=== PATIENT | female | born 1995 | race Caucasian/White ===

== ENCOUNTER → 2020-06-12 10:11 | Outpatient (CLI) | payer BC, SELFPAY ==
[2015-08-15 20:06] VITALS: BMI 34.7
[2020-06-16 16:06] LABS: HPV Reflexed? NOT INDICATED
== END ==
PROVIDERS: Visit Provider Obstetrics & Gynecology
DX: Z12.4 Encounter for screening for malignant neoplasm of cervix (principal); Z11.3 Encounter for screening for infections with a predominantly sexual mode of transmission
CPT/HCPCS: 88175; G0145

== ENCOUNTER → 2020-11-13 09:31 | Outpatient (CLI) | payer BC, SELFPAY ==
[2020-11-13 09:52] LABS: Absolute Lymphocyte Count 2.32 X10^3/uL (0.83-4.51); Absolute Neutrophil Count 5.3 X10^3/uL (2.0-7.7); Basophil# 0.02 X10^3/uL; Basophil% 0.2 % (0-1); Eosinophil# 0.16 X10^3/uL; Eosinophils% 1.9 % (0-5); Hematocrit 41.1 % (37-47); Hemoglobin 14.3 g/dL (12.0-15.0); Lymphocyte # 2.32 X10^3/ul (4.0); Lymphocyte % 27.4 % (19-41); Mean Corp Hgb Conc 34.8 g/dL (32-36); Mean Corpuscular Volume 86.3 fL (81-99); Mean Platelet Vol. 11.2 fl (6.2-12.0); Monocyte# 0.66 X10^3/uL; Monocyte% 7.8 % (0-10); NRBC Flagged by Analyzer 0 % (0-5); Neutrophil # 5.29 X10^3/uL (2.7-7.7); Neutrophil % 62.5 % (47-70); Platelet Count 183 K/mm3 (150-450); RBC Distribution Width CV 12.5 % (11.6-14.6); RBC Distribution Width SD 39.8 fl (35.1-43.9); Red Blood Count 4.76 M/mm3 (4.2-5.4); White Blood Count 8.5 K/mm3 (4.4-11.0)
[2020-11-13 11:24] LABS: HIV - WCH Non-Reactive (Nonreactive); Hepatitis B Surface Antigen Non-Reactive (Nonreactive); Hepatitis C Antibody Non-Reactive (Nonreactive); Rubella IgG Reactive (Nonreactive)
[2020-11-15 03:07] LABS: Chlamydia By Nucleic Acid AMP Negative (Negative)
[2020-11-15 11:48] LABS: Gonococcus By Nucleic Acid AMP Negative (Negative)
[2020-11-20 01:10] LABS: Prenatal RPR NONREACTIVE (NONREACTIVE)
== END ==
PROVIDERS: Visit Provider Obstetrics & Gynecology
DX: Z34.81 Encounter for supervision of other normal pregnancy, first trimester (principal)
CPT/HCPCS: 36415; 85025; 86703; 86762; 86803; 87077; 87086; 87088; 87340; 87491; 87591

== ENCOUNTER → 2021-04-14 10:19 | Outpatient (CLI) | payer BC, MEDICAID, SELFPAY ==
[2021-04-14 12:02] LABS: Hematocrit 36.2 % (37-47); Hemoglobin 12.2 g/dL (12.0-15.0); Mean Corp Hgb Conc 33.7 g/dL (32-36); Mean Corpuscular Hgb 29.8 pg (27.0-32.0); Mean Corpuscular Volume 88.5 fL (81-99); Mean Platelet Vol. 11.9 fl (6.2-12.0); Platelet Count 174 K/mm3 (150-450); RBC Distribution Width CV 12.9 % (11.6-14.6); RBC Distribution Width SD 41.7 fl (35.1-43.9); Red Blood Count 4.09 M/mm3 (4.2-5.4); White Blood Count 13.5 K/mm3 (4.4-11.0)
[2021-04-14 12:07] LABS: Glucose Challenge Gest 1H 50g 120 mg/dL (70-140)
== END ==
PROVIDERS: Visit Provider Obstetrics & Gynecology
DX: Z34.83 Encounter for supervision of other normal pregnancy, third trimester (principal)
CPT/HCPCS: 36415; 82950; 85027

== ENCOUNTER → 2021-05-28 17:33 | Outpatient (CLI) | payer BC, MEDICAID, SELFPAY | PROVIDERS: Visit Provider Obstetrics & Gynecology | DX: R30.0 Dysuria (principal) | CPT/HCPCS: 87086; 87088 ==

== ENCOUNTER → 2021-06-10 16:31 | Outpatient (CLI) | payer BC, MEDICAID, SELFPAY ==
[2021-06-10 17:25] LABS: Hematocrit 36.5 % (37-47); Hemoglobin 12.5 g/dL (12.0-15.0); Mean Corp Hgb Conc 34.2 g/dL (32-36); Mean Corpuscular Hgb 29.6 pg (27.0-32.0); Mean Corpuscular Volume 86.5 fL (81-99); Mean Platelet Vol. 11.7 fl (6.2-12.0); Platelet Count 170 K/mm3 (150-450); RBC Distribution Width CV 13.2 % (11.6-14.6); RBC Distribution Width SD 41.3 fl (35.1-43.9); Red Blood Count 4.22 M/mm3 (4.2-5.4); White Blood Count 13.6 K/mm3 (4.4-11.0)
[2021-06-10 17:38] LABS: Prothrombin Time (Protime)PT. 12.4 SECONDS (11.7-14.9)
[2021-06-10 17:39] LABS: Partial Thromboplast Time 29.7 Seconds (24.1-36.2)
[2021-06-10 17:50] LABS: AST(SGOT) 15 U/L (15-37); Alanine Aminotransfer ALT/SGPT 19 U/L (13-56); Creatinine, Serum 0.42 mg/dL (0.55-1.02); EST Glomerular Filtration Rate 196 mL/min (>60); Est Glom Filt Rate - Afr Amer 237 mL/min (>60)
== END ==
PROVIDERS: Visit Provider Obstetrics & Gynecology
DX: Z34.83 Encounter for supervision of other normal pregnancy, third trimester (principal)
CPT/HCPCS: 36415; 82565; 84450; 84460; 84550; 85027; 85610; 85730

== ENCOUNTER → 2021-06-19 10:10 | Outpatient (CLI) | payer MEDICAID, BC, SELFPAY | PROVIDERS: Visit Provider Obstetrics & Gynecology | DX: Z36.85 Encounter for antenatal screening for Streptococcus B (principal) | CPT/HCPCS: 87077; 87081; 87186 ==

== ENCOUNTER 2021-06-26 19:56 | Outpatient (CLI) | payer MEDICAID, BC, SELFPAY ==
[2021-06-26 20:08] VITALS: PULSE 113; O2SAT 97
[2021-06-26 20:11] VITALS: TEMP 36.3
[2021-06-26 20:12] VITALS: BP 124/67; PULSE 101
[2021-06-26 20:16] VITALS: BMI 37.1
[2021-06-26 20:31] LABS: Color, Urine Yellow (Yellow); Glucose, Dipstick Normal (Normal); Ketone-Dipstick Negative (Negative); Leukocyte Esterase-Dipstick 100 /ul (Negative); Nitrite-Dipstick Negative (Negative); Occult Blood-Urine Negative /ul (Negative); Protein-Dipstick 15 mg/dl (Negative); Specific Gravity, Urine 1.015 (1.002-1.030); Urine Bilirubin Dipstick Negative (Negative); Urine Clarity Sl. Cloudy (Clear); Urine Urobilinogen 1 mg/dl (Normal); Urine pH 6.5 (5.0 - 8.0)
--- NOTE | 2021-06-27 09:49 | OB.TRI.NOTE ---
HPI - General HPI Narrative SARAH SINGH, is a 25 F who presents to labor and delivery because of foul-smelling urine. She denies any contractions, bleeding, or decreased movement. PFSH PFSH Home Medications vit,[id number] [Prenatabs FA] 1 tab PO DAILY 08/15/15 [History Last Taken 06/26/21] Allergy/AdvReac Type Severity Reaction Status Date / Time morphine Allergy Hives Verified 08/15/15 20:08 prednisone Allergy Nausea/Vom/ Verified 06/26/21 20:17 Diarrhea Social History Smoking Status: Current every day smoker History Elective abortions Hx Para 0 Spontaneous abortions Hx # Term Pregnancies Ectopic pregnancies Hx # Pregnancies Multiple births # of living children NST FHR Rate Baby A NST Reactive:: Yes FHR Category:: Category I Assessment & Plan (1) Urine discoloration: PLAN: 38+ week intrauterine with urine discoloration. Urine analysis was negative. Will send urine for culture and sensitivity. Reactive nonstress test. Will discharge to home with routine follow-up
== END 2021-06-26 20:10 | disposition home or self-care (01) ==
LOC: WPOUT 20:01 → WP 20:02
PROVIDERS: Referring Provider Obstetrics & Gynecology; Visit Provider Obstetrics & Gynecology
DX: O26.893 Other specified pregnancy related conditions, third trimester (principal); R39.89 Other symptoms and signs involving the genitourinary system; Z3A.38 38 weeks gestation of pregnancy
CPT/HCPCS: 59025; 59050; 81002; 99218; G0378

== ENCOUNTER 2021-07-02 06:51 | Inpatient (IN) | payer BC, MEDICAID, SELFPAY ==
[2021-07-02] VITALS (43 sets, daily range): BP systolic 124–155; BP diastolic 65–88; PULSE 72–213; RESP 16; TEMP 36.2–37; O2SAT 82–100; BMI 35.3
[2021-07-02 07:58] LABS: Absolute Lymphocyte Count 2.17 X10^3/uL (0.83-4.51); Absolute Neutrophil Count 8.9 X10^3/uL (2.0-7.7); Basophil# 0.03 X10^3/uL; Basophil% 0.2 % (0-1); Eosinophil# 0.29 X10^3/uL; Eosinophils% 2.3 % (0-5); Hematocrit 38.7 % (37-47); Lymphocyte # 2.17 X10^3/ul (0.83-4.51); Lymphocyte % 17.3 % (19-41); Mean Corp Hgb Conc 33.6 g/dL (32-36); Mean Corpuscular Hgb 29.7 pg (27.0-32.0); Mean Corpuscular Volume 88.4 fL (81-99); Mean Platelet Vol. 11.9 fl (6.2-12.0); Monocyte# 1.02 X10^3/uL; Monocyte% 8.1 % (0-10); NRBC Flagged by Analyzer 0 % (0-5); Neutrophil # 8.93 X10^3/uL (2.7-7.7); Neutrophil % 71.5 % (47-70); Platelet Count 151 K/mm3 (150-450); RBC Distribution Width CV 13.2 % (11.6-14.6); RBC Distribution Width SD 42.6 fl (35.1-43.9); Red Blood Count 4.38 M/mm3 (4.2-5.4); White Blood Count 12.5 K/mm3 (4.4-11.0)
[2021-07-02] MEDS: Lactated Ringers 1,000 ML 50 ML IV (08:21)
--- NOTE | 2021-07-02 08:26 | PCM.HP.BLA ---
History and Physical Date of Admission: 07/02/21 Chief complaint: Induction of labor at term History of present illness: 26-year-old at 39 weeks and 3 days with TERRI: 07/06/2021 by LMP arrives for induction of labor at term. Denies headache, visual changes, chest pain, shortness of breath, nausea vomiting, right upper quadrant pain. Patient states good movement. Obstetric history: G1: 38-week female 08/16/2015 G2: 37-week female 06/16/2019 complicated by gestational hypertension G3: SAB G4: Current Past medical history: None Medications: Aspirin, vitamin Past surgical history: Appendectomy, tonsils and adenoids Allergies: Morphine, prednisone Social history: Former smoker on patch, denies alcohol or drug use Family history: Denies to history DVT or PE Review of systems: Besides the above pertinent positives a full review of systems was performed and found to be negative Physical exam: Vital signs: Blood pressure 124/67 pulse 101 temp 97.5 Fahrenheit General: Normal-appearing no acute distress HEENT: Normocephalic atraumatic no cervical of adenopathy Cardiac/respiratory: No use of accessory muscles, nonlabored breathing Abdomen: Soft, nontender, gravid Extremities: No peripheral edema normal peripheral pulses Psych: Normal affect normal demeanor nonpressured speech Labs: White blood cell count 12.5, hemoglobin 13.0 hematocrit 38.7%, platelets 151. Blood type B+ antibody negative Assessment plan: 26-year-old at 39 weeks and 3 days for induction of labor at term Admit labor and delivery CEFM GBS positive: For penicillin Induction via Pitocin Routine orders Anesthesia to see
[2021-07-02] MEDS: Oxytocin 30 units/NS 500 ml 30 UNITS/500 ML IV.SOLN IV (09:00)
[2021-07-02] MEDS: Lactated Ringers 500 ML 999 ML IV (10:37)
[2021-07-02] MEDS: fentaNYL-bupivacaine (epidural) 100 ML BAG EPIDURAL (11:22)
[2021-07-02] MEDS: Penicillin G 3,000,000 Units 50 ML 100 UNITS IV (12:32)
--- NOTE | 2021-07-02 13:16 | PN.OBGYN_ITS ---
Subjective Subjective Patient now comfortable with epidural Objective Data Objective Data Vital Signs: Vital Signs Temp Pulse BP Pulse Ox 97.7 F L 83 133/70 H 98 07/02/21 13:02 07/02/21 13:03 07/02/21 13:03 07/02/21 12:08 Weight: 218 lb 11.177 oz Body Mass Index (BMI) 35.3 Intake & Output: Intake and Output for Last 24 Hours 06/30/21 07/01/21 07/02/21 23:59 23:59 23:59 Intake Total 970.81 / 970.81 Output Total 350 / 350 Balance 620.81 / 620.81 Lab / Micro Data Result Diagrams: 07/02/21 07:40 Labs: Laboratory Results - last 24 hr 07/02/21 07:40: WBC 12.5 H, RBC 4.38, Hgb 13.0, Hct 38.7, MCV 88.4, MCH 29.7, MCHC 33.6, RDW Std Deviation 42.6, RDW Coeff of Holli 13.2, Plt Count 151, MPV 11.9, Immature Gran % (Auto) 0.600, Neut % (Auto) 71.5 H, Lymph % (Auto) 17.3 L, Tama % (Auto) 8.1, Eos % (Auto) 2.3, Baso % (Auto) 0.2, Absolute Neuts (auto) 8.9 H, Absolute Lymphs (auto) 2.17, Nucleated RBC % 0 07/02/21 07:40: Blood Type B POSITIVE, Antibody Screen NEGATIVE Micro: Microbiology 07/02/21 07:30 Nasal Secretion SARS-CoV-2 Antigen (Rapid) - Final Physical Exam Const alert, oriented x3, no apparent distress, average body habitus, healthy a ppearing and well nourished HEENT normocephalic and moist oral mucous membranes Head and Scalp: atraumatic Face and Sinus: normal facial exam Neck full ROM Resp normal respiratory effort, no retractions and no use of accessory muscles Narrative: Cervical exam /-3. AROM clear fluid Extremity normal to inspection, full ROM and no clubbing, cyanosis or edema Psych mental status grossly normal, affect normal, speech normal and activity/motor b ehavior normal Assessment & Plan (1) : PLAN: Patient seen and examined. Now comfortable with epidural. AROM for clear fluid. Continue current management
[2021-07-02] MEDS: Mag Hydrox/Al Hydrox/Simeth 30 ML UDC PO (13:37)
[2021-07-02] MEDS: Oxytocin 30 units/NS 500 ml 30 UNITS/500 ML IV.SOLN 334 UNITS IV (15:00)
--- NOTE | 2021-07-02 15:08 | EX.PCM.OBRPT ---
Vaginal Delivery Findings Description of Procedure: Normal spontaneous vaginal delivery of a viable male , vertex GRAHAM. Head and shoulders delivered with ease. Cord cut and clamped. Baby handed off to patient. Placenta delivered via cord traction and fundal massage. First-degree midline perineal laceration noted and repaired in typical fashion. EBL 300 cc Apgars 9/9
[2021-07-02] MEDS: 0.9% Saline Lock 10 ML Syringe IV (17:40)
[2021-07-03] VITALS (7 sets, daily range): BP systolic 122–155; BP diastolic 67–77; PULSE 74–80; RESP 16–18; TEMP 36.1–36.8; O2SAT 97–98
--- NOTE | 2021-07-03 08:28 | PCM.DC ---
Discharge Instructions Diet Discharge Diet: No restrictions Activity Discharge Activity: Return to Normal Activity, May Drive and May Shower May resume sexual activity in: 4-6 weeks Weight Bearing Status: Weight bearing as tolerated Dressing / Incision Call your doctor if your incision/area has: Continuous Slow Oozing and Foul Smelling Discharge Call your doctor if you observe: Fever of 101 or Higher, Shortness of breath and Chest pain Follow Up Care Please Follow Up With: Zaki Quinn MD When: 2 week telehealth, 4-6 weeks Test Results: Test results from this visit will be discussed in further detail at your follow-up appointment, if applicable. Discharge Plan Admission Admit Date/Time: 07/02/21 06:51 Attending Provider: Zaki Quinn Primary Care Provider: Care Physician,Meenu Primary Discharge Orders/Prescriptions Prescriptions: No Action Prenatabs FA 1 TABLET tablet 2 tab PO DAILY RF: 0 Disposition Discharge Orders: Discharge Patient (Routine); Ordered 07/03/21 Ordered By: Dr. Zaki Quinn
--- NOTE | 2021-07-03 08:30 | PCM.PN.OB ---
Subjective Subjective no over night complaints. Pain well controlled Objective Data Objective Data Vital Signs: Vital Signs Temp Pulse Resp BP Pulse Ox 98.2 F 75 16 155/67 H 99 07/03/21 03:34 07/03/21 03:34 07/03/21 03:34 07/03/21 03:34 07/02/21 17:29 Oxygen Delivery Method Room Air Weight: 218 lb 11.177 oz Body Mass Index (BMI) 35.3 Intake & Output: Intake and Output for Last 24 Hours 07/01/21 07/02/21 07/03/21 23:59 23:59 23:59 Intake Total 1939.64 / 1939.64 Output Total 350 / 350 Balance 1589.64 / 1589.64 Lab / Micro Data Result Diagrams: 07/02/21 07:40 Labs: Laboratory Results - last 24 hr 07/02/21 07:40: Blood Type B POSITIVE, Antibody Screen NEGATIVE Micro: Microbiology 07/02/21 07:30 Nasal Secretion SARS-CoV-2 Antigen (Rapid) - Final Physical Exam Const alert, oriented x3, no apparent distress, average body habitus, healthy appearing and well nourished HEENT normocephalic and moist oral mucous membranes Head and Scalp: atraumatic Face and Sinus: normal facial exam Eyes PERRL Neck full ROM Resp normal respiratory effort, no retractions and no use of accessory muscles Extremity normal to inspection, full ROM and no clubbing, cyanosis or edema Skin no rashes or lesions noted Psych mental status grossly normal, affect normal, speech normal and activity/motor behavior normal Assessment & Plan (1) Vaginal delivery: PLAN: PPD#1. . Pain well controlled. Okay to discharge home today if okay with distribution engineering technologist
== END 2021-07-03 16:35 | disposition home or self-care (01) | DRG 807 ==
PROVIDERS: Admitting Provider Obstetrics & Gynecology; Visit Provider Obstetrics & Gynecology
DX: O99.824 Streptococcus B carrier state complicating childbirth (principal); Z37.0 Single live birth; Z3A.39 39 weeks gestation of pregnancy; O70.0 First degree perineal laceration during delivery; Z87.891 Personal history of nicotine dependence
CPT/HCPCS: 59025; 59050; 85025; 86850; 86900; 86901; 87426; 99218; J7120; A4216; G0378

== ENCOUNTER 2021-09-10 06:28 | Day surgery (SDC) | payer BC, MEDICAID, SELFPAY ==
[2021-09-09 09:57] LABS: Hematocrit 44.7 % (37-47); Hemoglobin 14.3 g/dL (12.0-15.0); Mean Corpuscular Hgb 28.1 pg (27.0-32.0); Mean Platelet Vol. 11.1 fl (6.2-12.0); Platelet Count 195 K/mm3 (150-450); RBC Distribution Width CV 12.1 % (11.6-14.6); Red Blood Count 5.08 M/mm3 (4.2-5.4); White Blood Count 8.8 K/mm3 (4.4-11.0)
[2021-09-09 10:13] LABS: Prothrombin Time (Protime)PT. 12.6 SECONDS (11.7-14.9)
[2021-09-09 10:29] LABS: Internal QC Validated? YES +Cl - CLEAR BKGD; Pregnancy, Serum, hCG Quali. NEGATIVE Negative
--- NOTE | 2021-09-10 06:33 | HP.PCM.OB_ITS ---
History and Physical Date of Admission: 09/10/21 Surgical History and Physical Date: 09/10/2021 Name: SHIRA SINGH Age: 26 Date of : 1995 Shira Singh, a 26 year old female 2 0 1 0 2, presents for L/S Bilateral Salpingectomy on September 10, 2021 at . -- Thea presents here today for bilateral salpingectomy. No changes. MEDICATIONS HISTORY: Current medications prescribed by our practice are: 1. + DHA 28 mg iron- 975 mcg-200 mg combo pack, daily Patient is also takin. Vitamin C 500 mg tablet, 1po qday 2. zinc 50 mg tablet, 1po qday ALLERGIES: Morphine, Hives/vomiting, Morphine, Hives and/or rash, Prednisone, Severe nausea & vomiting, Morphine, Hives and/or rash, Prednisone, Vomiting, Morphine and Hives and/or rash Infections - Chicken pox Illnesses - none Accidents - None Hospitalizations - Childbirth and see surgery Review of Systems: GENERAL - Denies fever, or chills SKIN - Denies skin changes EYES - Denies visual changes EARS - Denies difficulty hearing NOSE - Denies nasal congestion or bleeding MOUTH - Denies sore throat or difficulty swallowing NECK - Denies pain or swelling RESPIRATORY - Denies shortness of breath or wheezing CARDIOVASCULAR - Denies palpitations or chest pain GASTROINTESTINAL - Denies nausea, vomiting, diarrhea, constipation GENITOURINARY - Denies dysuria, frequency of urination, incontinence of urine MUSCULOSKELETAL - Denies joint or muscle pain NEUROLOGICAL - Denies localized numbness or weakness PSYCHIATRIC - Denies depression or anxiety ENDOCRINE - Denies heat or cold intolerance, weight loss or gain HEMATO-IMMUNOLOGIC - Denies excessive bleeding with cuts SOCIAL HISTORY: Alcohol Use - denies drinking Smoking - used to smoke but quit and uses Nicotine patch prn Diet - moderate, balanced diet Lifestyle - moderate stress lifestyle and single Exercise - very active Seat Belt Use - always 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 Paternal Grandmother: DM II and Heart Disease. MENSTRUAL HISTORY: LMP Known?- DefiniteAmount/Duration - 6 days, LMP - 09/29/20, Age Onset Menarche - 14 PAST PREGNANCIES: Total Pregnancies - 4; Full Term Pregnancies - 2; Premature - 0; Abortions, Induced - 0; Abortions, Spontaneous - 1; Ectopics - 0; Multiple Births - 0; Living Children - 2 SURGICAL HISTORY: 1. Appendectomy, 2009 ; - 2. Adnoids, 2005 ; - 3. Tonsillectomy 2019 ; Geren - PHYSICAL EXAM BP- 118/74 Sitting, Right arm, regular cuff Weight- 219.98885 lbs Height- 66.25 inch BMI:[id number] CONSTITUTIONAL - NAD, well nourished, and well developed SKIN - No rash, lesions, or ulcers HEENT - Normocephalic, PERRLA, EOMI NECK - No nodes, no nuchal rigidity and thyroid normal size and texture LYMPH NODES - Palpation of lymph nodes in neck and groins within normal limits ABDOMEN - Without hepatosplenomegaly, distention, masses, rebound, or guarding; normal bowel sounds; no hernias EXTREMITIES - No edema or calf tenderness NEUROLOGICAL - Cranial nerves II-XII grossly intact PSYCHIATRIC - A and O to time, place, person, mood and affect External Genital Vagina - non-tender without lesions Urethra/Urethral Meatus - non-tender Bladder - non-tender Vagina - vaginal cavazos are pink and moist without loss of rugae and no evidence of atrophy Cervix - without cervical motion tenderness and has normal size and features without evident lesions Uterus - 5-6 cm in size, mobile and nontender Adnexa - clear without masses or tenderness ASSESSMENT/PLAN: 1. Encounter For Other Preprocedural Examination Pt scheduled for laparoscopic tubal location Pt with hx of open appendectomy, educated pt on increased risk with open appendectomy. Pt states did not have ruptured appendix, it was surgeons preference. Pt states understanding R/b/a of the procedure discussed, pt states understanding and wishes to proceed, all questions and consent signed On no meds, discussed after surgery. Discussed lifting restrictions and pain control after surgery. Discussed ovulation and menses after
[2021-09-10 07:00] VITALS: BP 117/54; PULSE 78; RESP 16; TEMP 36.1; O2SAT 100; BMI 35.9
[2021-09-10 07:00] LABS: Internal QC Validated? YES +Cl - CLEAR BKGD; Pregnancy, Urine Negative Negative
[2021-09-10] MEDS: Lactated Ringers 1,000 ML 15 ML IV (07:03)
--- NOTE | 2021-09-10 08:00 | FALS_PTH ---
PATIENT: SARAH SINGH [place] [facility] [id number] AGE/SX: 26/F ROOM: RE09/10/[address]: Dr. Zaki Quinn MD : 1995 BED: DIS: 09/10/2021 SPEC #: [id number] RECD: 09/10/21 11:10 STATUS: XUAN REThanh #: [id number] MANOLO: 09/10/21 08:[address]: Zaki Quinn DEPT: SURGICAL PATHOLOGY RECD BY: Rosette Hendricks ENTERED: 09/10/21 13:09 SP TYPE: FALL TUBES OTHR DR: Georgina Ramey, PITCH GATHERER-C Tissues: Fallopian tube Procedures: Surgery Specimen Level IV HEADER OPERATION: Laparoscopic salpingectomy, bilateral PRE-OP DIAGNOSIS: Sterilization TISSUE SUBMITTED: Bilateral fallopian tubes MICROSCOPIC DIAGNOSIS Right and left fallopian tubes, bilateral salpingectomies: Complete cross-sections of fallopian tubes. Benign paratubal cysts. AM:bharati 09/11/2021 MICROSCOPIC DESCRIPTION Slides are reviewed. GROSS DESCRIPTION Received in fixative is one container labeled with the patient's name and designated bilateral fallopian tubes. The specimen consists of two fallopian tubes with an average length of 7 cm and has an average diameter of 0.4 cm. Both fallopian tubes have normal fimbriated ends. One fallopian tube contains a paratubal cyst near the fimbriated end measuring 1 cm in greatest dimension. The other fallopian tube contains a similar cyst measuring 2 cm in greatest dimension and also adjacent to the fimbriated end. Aircraft Painter sections of paratubal cysts and fallopian tubes are submitted in two cassettes. / AM:bharati 09/10/21 TC:1 CPT: 94297 x2
[2021-09-10 08:53] VITALS: BP 117/84; BP 125/74; PULSE 97; RESP 16; TEMP 36.9; O2SAT 96
--- NOTE | 2021-09-10 08:58 | PCM.DC ---
Discharge Instructions Diet Discharge Diet: No restrictions Activity Discharge Activity: Return to Normal Activity, May Drive and May Shower May resume sexual activity in: 4-6 weeks Lifting Restrictions: No lifting over 25 pounds for 2 to 3 weeks Dressing / Incision Call your doctor if your incision/area has: Continuous Slow Oozing and Foul Smelling Discharge Call your doctor if you observe: Fever of 101 or Higher, Shortness of breath and Chest pain Follow Up Care Please Follow Up With: Zaki Quinn MD When: Follow-up 2 weeks postoperatively Test Results: Test results from this visit will be discussed in further detail at your follow-up appointment, if applicable. Discharge Plan Admission Primary Reason for Your Visit: tubal ligation Attending Provider: Zaki Quinn Primary Care Provider: Georgina Ramey NP Discharge Orders/Prescriptions Prescriptions: New oxycodone 5 mg Tablet 5 mg PO Q6H PRN (Reason: pain (scale score 7-10)) 3 Days Qty: 12 RF: 0 Continued Prenatabs FA 1 TABLET tablet 2 tab PO DAILY RF: 0 ascorbic acid (vitamin C) [Vitamin C] 500 mg Tablet 500 mg PO DAILY RF: 0 zinc 50 mg Tablet 50 mg PO DAILY RF: 0 Referrals / Follow Up: Georgina Ramey NP, CALL OR CONTACT CENTRE OPERATOR-C [Primary Care Provider] - Disposition Disposition (needs filled in before D/C Order can be placed): Home, Self Care
--- NOTE | 2021-09-10 08:59 | PCM.OPRPT ---
Report of Operation Date of Procedure: 09/10/21 Pre-Operative Diagnosis: Desires permanent sterilization Post-Operative Diagnosis: Desires permanent sterilization Surgery/Procedure Performed:: Laparoscopic bilateral salpingectomy Description of Surgical Findings:: Surgeon: Zaki Quinn MD Anesthesia: General EBL: 10 cc Urine output: 300 cc IV fluids: 500 cc Complications: None Specimen: Bilateral fallopian tubes Findings: Normal uterus, tubes, and ovaries. Consent: Patient with desired permanent sterilization in need of laparoscopic tubal ligation. Patient understands the risk of the procedure include but are not limited to visceral or vascular injury, prolonged hospitalization, blood loss and need for transfusion, reoperation. Patient stated understanding and wished to proceed. All questions were answered and consent was signed. Procedure: Patient was brought back to the OR where general anesthesia was found to be adequate. Patient was prepared and draped in a dorsal lithotomy position with yellowfin stirrups. A weighted speculum was placed in the posterior aspect of vagina and cervical dilators were used to dilate the cervix. Uterine manipulator was placed. Varies needle was inserted at the umbilicus no insufflation could be obtained. 5 mm midline supraumbilical incision was made and trocar was inserted via direct visualization via [employer]. Abdomen was insufflated, laparoscope was inserted, and above findings were noted. Left lower quadrant 8 mm trocar was inserted under direct visualization. A 5 mm trocar in the right lower quadrant was inserted under direct visualization. Using an atraumatic grasper and a LigaSure device the right fallopian tube was identified out to the fimbriae and the mesosalpinx was cut and cauterized with the LigaSure device. Right fallopian tube was removed from the abdomen and sent off to pathology. In a similar fashion the left fallopian tube was identified out to the fimbriae and the mesosalpinx was cut and cauterized with the LigaSure device. Left lipping tube was removed from the abdominal cavity and sent to pathology. Good hemostasis was noted. Trochars were removed under direct visualization and good hemostasis was noted. Abdomen was desufflated. Laparoscopic port sites were closed in a subcutaneous fashion. Good hemostasis was noted. Uterine manipulator was removed. Good hemostasis was noted. All counts were correct x2. Patient tolerated procedure well and was brought to recovery in a stable condition.
[2021-09-10 09:00] VITALS: BP 117/84; BP 139/93; PULSE 78; RESP 16; O2SAT 99
[2021-09-10 09:15] VITALS: BP 117/84; BP 118/78; PULSE 60; RESP 16; O2SAT 95
[2021-09-10 09:31] VITALS: BP 113/73; BP 117/84; PULSE 65; RESP 16; TEMP 36.7; O2SAT 96
[2021-09-10 10:03] VITALS: BP 117/84
== END 2021-09-10 10:22 | disposition home or self-care (01) ==
LOC: SDC 06:31 → AC 06:31
PROVIDERS: Anesthesiology; PCP Nurse Practitioner Family; Referring Provider Obstetrics & Gynecology; Visit Provider Obstetrics & Gynecology
PROC: (CPT 58661; principal; 2021-09-10 07:45)
DX: Z30.2 Encounter for sterilization (principal); Z87.891 Personal history of nicotine dependence
CPT/HCPCS: 00840; 58661; 36415; 81025; 84703; 85027; 85610; 85730; 86850; 86900; 86901; 87426; 88302; 88305; C9803; J7120; J2405